=== PATIENT | male | born 1990 | race African-American/Black ===

== ENCOUNTER 2019-12-21 16:16 | Emergency (ER) | payer OTHER ==
[~2019-12-21] VITALS: Ht 193 cm; Wt 176.4 kg
[2019-12-21 16:49] LABS: HEMATOCRIT 44.9 % (42.0-52.0); HEMOGLOBIN 15.1 gm/dL (14.0-18.0); MCHC 33.6 g/dL (28.0-37.0); MCV 80.4 fL (80.0-100.0); PLATELET COUNT 280 thou/uL (150-400); RBC 5.59 mil/uL (4.50-6.00); RDW 15.5 % (10.5-14.5); WBC 8.8 thou/uL (4.0-11.0)
[2019-12-21 17:05] LABS: ANION GAP 3 mmol/L (7-16); BUN 7 mg/dL (7-18); CALCIUM 8.9 mg/dL (8.5-10.1); CHLORIDE 102 mmol/L (98-107); CO2 30 mmol/L (21-32); CREATININE 1.2 mg/dL (0.7-1.3); GLUCOSE 101 mg/dL (74-106); SODIUM 135 mmol/L (136-145)
[2019-12-21 17:08] LABS: TROPONIN-I <0.06 ng/mL (<0.06)
[2019-12-21 17:36] LABS: PLATELET ESTIMATE NORMAL
[2019-12-21 17:53] VITALS: BP 142/84
--- NOTE | 2019-12-22 07:31 | EKG ---
[facility] [place] [address] ELECTROCARDIOGRAM REPORT Name: DEANNE MARROQUIN Room #: DEP [facility]#: [id number] Admission: 12/21/19 Attend Phys: Discharge: 12/21/19 Date of : 89 Report #: [id number] THIS REPORT FOR: cc: ANKIT - Nano family physician/PCP FAM - No family physician/PCP Arnav Vargas MD [facility] THIS REPORT FOR: //name// [facility] ED Test Date: 2019-12-21 Test Time: 16:23:41 Pat Name: DEANNE MARROQUIN Department: Room: Gender: Fund Manager: [facility] : 1990 Requested By: Chago Peterson Order Number: [id number] MD: Arnav Vargas Measurements Intervals Viola Rate: 93 P: -6 IA: 158 QRS: 7 QRSD: 96 T: 31 QT: 344 QTc: 428 Interpretive Statements Sinus rhythm Normal tracing No previous ECG available for comparison Electronically Signed On 12-22-2019 7:30:57 CDT by Arnav Vargas [email or web address] <ELECTRONICALLY SIGNED> By: Arnav Vargas MD, [facility] 12/22/19 0730 1623 162 Arnav Vargas MD, [facility] /EPI
== END 2019-12-21 17:53 | disposition home or self-care (01) ==
LOC: ER 16:16
PROVIDERS: Emergency Medicine
DX: R07.89 Other chest pain (principal); R42 Dizziness and giddiness; J45.909 Unspecified asthma, uncomplicated; F17.210 Nicotine dependence, cigarettes, uncomplicated